=== PATIENT | female | born 1935 | race Caucasian/White ===

== ENCOUNTER → 2017-03-19 | Outpatient (CLI) | payer BC, OTHER ==
[~2017-03-19] MED LIST: IOPAMIDOL (ISOVUE 370) 100 ML BTL IV ONE
== END ==
LOC: FIMAGING 11:57
PROVIDERS: ATTEND Internal Medicine Cardiovascular Disease
DX: I70.203 Unspecified atherosclerosis of native arteries of extremities, bilateral legs (principal); I70.1 Atherosclerosis of renal artery; I25.10 Atherosclerotic heart disease of native coronary artery without angina pectoris
CPT/HCPCS: 75635; Q9967

== ENCOUNTER 2017-09-02 07:25 | Observation (INO) | payer OTHER ==
[2017-09-02] MEDS ORDERED: diphenhydrAMINE 25 MG CAP PO ONE (07:28)
[2017-09-02] MEDS ORDERED: NS 1,000 ML IV ONE (07:28)
[2017-09-02] MEDS ORDERED: ASPIRIN EC 325 MG TAB PO ONE (07:28)
[2017-09-02] MEDS ORDERED: DIAZEPAM 5 MG TAB PO ONE (07:28)
[2017-09-02] MEDS ORDERED: FAMOTIDINE 20 MG TAB PO ONE (07:28)
--- NOTE | 2017-09-02 07:50 | CPEKG ---
Heart Rate: 66 RR Interval: 909 P-R Interval: 196 QRSD Interval: 72 QT Interval: 416 QTC Interval: 436 P [place]: 14 QRS [place]: 8 T Wave [place]: 46 EKG Severity - NORMAL ECG - EKG Impression: SINUS RHYTHM Electronically Signed By: Abdi Krishna 02-Sep-2017 07:56:25
[2017-09-02 08:11] LABS: PLATELET COUNT 335 10^3/uL (150-400)
[2017-09-02 08:24] LABS: PROTIME(PATIENT) 13.4 SEC (12.0-15.0)
[2017-09-02] MEDS ORDERED: LIDOCAINE 1% 300 MG/30 ML SDV ONE (08:25)
[2017-09-02] MEDS ORDERED: fentaNYL 100 MCG/2 ML INJ ONE (08:25)
[2017-09-02] MEDS ORDERED: IOPAMIDOL (ISOVUE-370) 150 ML BTL IV ONE (08:26)
[2017-09-02] MEDS ORDERED: MIDAZOLAM 2 MG/2 ML VIAL ONE (08:26)
--- NOTE | 2017-09-02 08:44 | PDGENHP ---
History & Physical Chief Complaint: Claudication History of Present Illness: 82 yo, f with known CAD and PVD presents with symptoms of increasing claudication and rest pain. CTA notable for ALEX and distal SFA disease. Plan for coronary angiography and peripheral angiography. Pertinent Past, Social, Family History: reviewed Relevant Physical Exam: deminished DP and PT pulses B Cardiorespiratory Assessment: RRR, S1, S2. CTA
--- NOTE | 2017-09-02 08:45 | PDPROPOC ---
Sedation Plan of Care Sedation Plan of Care: vital signs stable, mental status noted, patient educated of risks, benefits, alternatives, patient can tolerate sedation ASA Classification: ASA 2 Planned drugs: fentanyl, midazolam Mallampati Score: Class 2 Mallampati Reference Image: Patient passed 3-3-2 rule?: Yes
[2017-09-02] MEDS ORDERED: ATROPINE SULFATE 1 MG/10 ML SYR ONE (10:45)
[2017-09-02] MEDS ORDERED: ATROPINE SULFATE 1 MG/10 ML SYR IVP PRN (11:20)
[2017-09-02] MEDS ORDERED: NITROGLYCERIN 0.4 MG BTL SL PRN (11:20)
[2017-09-02] MEDS ORDERED: ONDANSETRON 4 MG/2 ML VIAL IVP PRN (11:20)
[2017-09-02] MEDS: METOPROLOL TARTRATE 25 MG TAB PO SCH (20:31)
[2017-09-02] MEDS ORDERED: ISOSORBIDE MONONITRATE 30 MG TAB.SR PO SCH (21:00)
[2017-09-02] MEDS ORDERED: RANOLAZINE 500 MG TAB.ER PO SCH (21:00)
--- NOTE | 2017-09-03 00:33 | CPIP ---
[f rep st] INVASIVE CARDIAC PROCEDURE DATE OF PROCEDURE: 09/02/2017 PROCEDURE: 1. Coronary angiography. 2. Ascending aortography. 3. Abdominal aortography. 4. Right lower extremity angiography via ipsilateral approach with catheter placed in the right comm on iliac artery. 5. Left lower extremity angiography via ipsilateral approach with catheter placed in the left common femoral artery. INDICATION: 1. Known coronary artery disease. 2. Preoperative evaluation for potential femoral-popliteal bypass surgery. 3. Progressive claudication resulting in rest pain. ACCESS: The patient was prepped and draped in sterile fashion. 1% lidocaine was used to anesthetize the right inguinal region. A 6-Malaysian introducer sheath was placed selectively into the right commo n femoral artery via modified Seldinger technique. 1% lidocaine was used to anesthetize the left ing uinal region. A 6-Malaysian introducer sheath was placed selectively into the left common femoral arter y via modified Seldinger technique. CORONARY ANGIOGRAPHY: A 6-Malaysian JL4 was advanced to the left main coronary artery and images obtain ed. The left main coronary artery bifurcated into an LAD and circumflex coronary arteries. The left main coronary artery had an ostial 80% stenosis present. The left anterior descending coronary mita ry is diffusely diseased. In the mid vessel, there was a long segmental 80% to 85% stenosis present. Distal to this stenosis, JIMENEZ to LAD graft could be seen filling the distal left anterior descendin g coronary artery. The left anterior descending coronary artery gave rise to 2 diagonal branches jus t prior to the stenosis. The diagonal branches appeared free of any significant disease. A stent ca n be seen in the proximal portion of the left anterior descending coronary artery. The previously pl aced stent is patent, with no evidence of significant in-stent restenosis. The circumflex coronary a rtery is a large vessel and is at least codominant. The circumflex coronary artery is diffusely dise ased. In the proximal segment, there is a long segmental tortuous 90% stenosis present. The first O M artery is totally occluded in the ostial segment, and it can be seen filling by vnrm-he-gtta collat erals. The remainder of the circumflex coronary artery had mild to moderate disease, with no stenosi s greater than 25%. A 6-Malaysian JR4 was advanced to the right coronary artery and images obtained. T he right coronary artery was diffusely diseased. The right coronary artery is a relatively small ves tommy, approximately 1.5 to perhaps 2 mm in diameter in the proximal segment. In the proximal portion of the blood vessel, there is a discrete 80% to 90% stenosis present. In the mid vessel, previously placed stent can be seen. The previously placed stent has in-stent restenosis approaching 70% in sev erity. BYPASS GRAFT ANGIOGRAPHY: The patient was known to have an occluded bypass graft to the right mclean ry artery and circumflex coronary artery. These grafts were not looked for. The patient was known t o have a patent JIMENEZ to LAD graft. Several attempts were made at trying to pass a 6-Malaysian JR4 into the left subclavian artery. These were unsuccessful. It was decided to perform aortography. During aortography, it could be seen that there is an ostial left subclavian stenosis that is probably 80% in severity. ABDOMINAL AORTOGRAPHY: A 6-Malaysian pigtail catheter was placed in the abdominal aorta, and position v erified by angiography. Images were obtained via power injection through the [employer] system. The dis yoshi portion of the abdominal aorta was relatively small in diameter and heavily calcified. It then b ifurcated into the left and right common iliac arteries. The left and right common iliac arteries ap peared to have ostial 75% stenosis present. RIGHT LOWER EXTREMITY ANGIOGRAPHY: With the ipsilateral approach with catheter placed in the right c ommon iliac artery, a straight flush catheter was placed in the right common iliac artery and positio n verified by angiography. Images were obtained via hand injection. The right common iliac artery b ifurcated into the internal iliac artery and external iliac artery. The ostial segment of the right internal iliac artery appeared to have a 75% stenosis present. The right internal iliac artery had a proximal 40% to 50% stenosis present. The right external iliac artery had mild diffuse disease. Th ere was no stenosis greater than 70%. The right external iliac artery then turned into the right com mon femoral artery. The right common femoral artery had a 40% stenosis at the bifurcation. The prof unda femoral artery was free of any significant disease. The superficial femoral artery was diffusel y diseased. In the ostial segment, there was probably a 30% to 40% stenosis present. In the proxima l portion of the vessel, there was sequential 90% stenosis present. In the mid vessel, there was a d iscrete 80% stenosis present. The popliteal artery also appeared to be about 80% stenosed. Below th e knee, there was single-vessel runoff via anterior tibial artery to posterior tibial artery collater als. LEFT LOWER EXTREMITY ANGIOGRAPHY: Via ipsilateral approach with catheter placed in the left common f emoral artery, the left common femoral artery bifurcated into the superficial femoral artery and prof unda femoral artery. The common femoral artery was diffusely diseased, with stenosis up to 20%. The profunda femoral artery is free of any significant disease. The superficial femoral artery was diff usely diseased. The superficial femoral artery was 100% occluded in the mid to distal segment. It r eapproximated itself just prior to turning into the popliteal artery. The popliteal artery had a 40% to 50% stenosis present. Below the knee, there was scant 2 vessel runoff. COMPLICATIONS: None. CONCLUSIONS: 1. Left main and 3-vessel coronary artery disease. 2. An 80% stenosis of the ostial left subclavian artery, jeopardizing JIMENEZ to LAD flow. 3. A 75% stenosis of the right and left common iliac arteries. 4. Scattered 80% to 90% stenosis of the right superficial femoral artery. 5. Occluded left superficial femoral artery. /[id number]/MODL
[2017-09-03] MEDS: METOPROLOL TARTRATE 25 MG TAB PO SCH (08:00)
[2017-09-03] MEDS ORDERED: DILTIAZEM CD 180 MG CAP PO SCH (09:00)
[2017-09-03] MEDS ORDERED: PANTOPRAZOLE SODIUM 40 MG TAB PO SCH (09:00)
[2017-09-03] MEDS ORDERED: CLOPIDOGREL BISULFATE 75 MG TAB PO SCH (09:00)
[2017-09-03 12:34] VITALS: BP 130/71; PULSE 86; RESP 16; TEMP 98.7; O2SAT 95
--- NOTE | 2017-09-03 13:34 | ASMTLACE ---
SHANNAE Length of stay for Answers: 1 day current admission Acuity / Level of Answers: No Care: Did the patient have an inpatient admission? Comorbidities - select Answers: Coronary Artery Disease all that apply Peripheral vascular disease # of Emergency department Answers: 0 visits in the last 6 months Score: 4 Date Signed: 09/03/2017 01:34 PM Electronically Signed By:Susanna Cisse RN
--- NOTE | 2017-09-03 14:01 | GDS ---
[f rep st] DISCHARGE SUMMARY DISCHARGE DIAGNOSIS: 1. Coronary artery disease. The patient has known coronary artery disease and is status post previo us coronary artery bypass grafting surgery and percutaneous coronary intervention. The patient under went coronary angiography in anticipation of surgical management of her peripheral vascular disease. Coronary angiography demonstrated significant left main and 3 vessel coronary artery disease. The pa tient's bypass graft to the right coronary artery and circumflex coronary artery were known to be occ luded previously. The patient's JIMENEZ to LAD graft was patent. However, the JIMENEZ to LAD graft is pot entially jeopardized by an 80% stenosis of the ostial left subclavian artery. The patient denies sym ptoms of angina. She is not interested in repeat bypass grafting surgery. We will plan on managing patient medically. 2. Peripheral vascular disease. Patient has known peripheral vascular disease with classic calf cla udication. Recently, patient began to experience bilateral quadriceps rest pain and presented for fur ther evaluation. Peripheral angiography was notable for a 75% stenosis of the right and left common iliac arteries. In addition, patient was noted to have a total occlusion of her distal left superfic ial femoral artery as well as multiple segmental 90% stenoses in her right superficial femoral arteri es. Management options were discussed with patient and family including medical management, percutane ous intervention and surgical revascularization. Patient would like to pursue percutaneous interventi on of her right and left common iliac arteries via kissing stent technique. Will arrange to have thi s performed in the following week. 3. Hyperkalemia. The patient's potassium was elevated at 5.5 on admission. This was felt to be like ly secondary to her spironolactone use. Patient was admitted to the hospital and treated with IV hydr ation and spironolactone held. Her creatinine returned within normal limits at 5.1. Will plan on dis continuing spironolactone. SUMMARY OF PRESENTATION AND COURSE: Mrs. Zapata is an 82-year-old female with known peripheral vas cular disease and coronary artery disease who was admitted for coronary and peripheral angiography on 09/02/2017. Coronary angiography was notable for significant left main and 3 vessel coronary artery disease. Her bypass grafts to the right coronary artery and circumflex coronary artery were known to be occluded previously. Her JIMENEZ to LAD graft was patent. However, she did have an 80% stenosis of her left subclavian artery potentially jeopardizing this graft. Patient denied symptoms of angina an d opted for medical management. The patient's peripheral vascular disease is quite extensive involvi ng her left subclavian artery bilateral common iliac arteries, bilateral superficial femoral arteries with limited runoff below the knee. Treatment options were discussed with patient and family includ ing medical management, percutaneous revascularization and surgical revascularization. Patient wishes to have percutaneous revascularization. Will arrange to have this performed the following week. The patient was admitted to the hospital for observation given hyperkalemia, mild renal insufficiency an d contrast load. The patient's postprocedural course was uncomplicated and at the time of discharge, she was doing well. DISCHARGE MEDICATIONS: Please see medicine reconciliation form. PHYSICAL EXAMINATION: GENERAL: At the time of discharge, patient is resting comfortably in a chair. She did not appear to be in acute distress. VITALS: Temperature was afebrile. Pulse was 86. Blood pressure 130/71. Respiratory rate was 16, SaO2 was 95% on room air. LUNGS: Clear to auscultation b ilaterally. CARDIOVASCULAR: Regular rate and rhythm. S1, S2. EXTREMITIES: No hematoma or ecchymo sis at the right and left inguinal access sites. No evidence of edema. LABORATORY: Sodium 141, potassium 5.1, chloride 107, CO2 20, BUN 28, creatinine 1.1. White blood ce ll count 7.6, hemoglobin 12.6, hematocrit 39.4, platelet count 335. ARRANGEMENTS FOR FOLLOWUP CARE: Patient will follow up with Dr. Narvaez in approximately 1 week's per iod of time for peripheral angiography and intervention of her common iliac arteries. She will also plan on following up with Dr. Amador following this intervention for ongoing management of her coronar y artery disease. /[id number]/MODL
--- NOTE | 2017-09-03 14:28 | ASDISCHSUM ---
Discharge Information Plan Status:Home with No Needs Medically Cleared to Leave:09/03/2017 Discharge Date:09/03/2017 02:05 PM CM D/C Disposition:Home, Routine, Self-Care ADT D/C Disposition:Home, Routine, Self-Care Projected Discharge Date:09/03/2017 02:05 PM Transportation at D/C:Family Discharge Delay Reason: Follow-Up Date:09/03/2017 02:05 PM Discharge Slot: Final Diagnosis: Placement Information Patient Contact Information Contact Name:CHARLES Relationship: Address:[address] [place] [address] [phone] Work Phone: [facility]:[place] Alternate Phone: [facility]/Zip Code:[place] [address] Email: Financial Information Financial Class:Medicare Advantage Plans Primary Plan Desc:LISA URRUTIA MEDICARE ADV Primary Plan Number:[id number] Secondary Plan Desc: Secondary Plan Number: Assessment Information LACE LACE Length of stay for Answers: 1 day current admission Acuity / Level of Answers: No Care: Did the patient have an inpatient admission? Comorbidities - select Answers: Coronary Artery Disease all that apply Peripheral vascular disease # of Emergency department Answers: 0 visits in the last 6 months Score: 4 Date Signed: 09/03/2017 01:34 PM Electronically Signed By:Susanna Cisse RN Case Management Discharge Plan Note Case Management Discharge Discharge Order Complete? Answers: Yes Patient to Obtain Answers: Independently Medications Transportation Arranged Answers: Family/Friends Discharge Comments Notes: 09/03/2017 Case Management Note Met w/pt and daughter Naida [phone]. Daughter Ragini resides in [facility] at [phone]. Family to transport home. There are no case management d/c needs identified. Pt to d/c independent with family support and follow up as directed. Date Signed: 09/03/2017 01:35 PM Electronically Signed By:Susanna Cisse RN Intervention Information Intervention Type:*SHEPPARD-Signed Date of Service:09/03/2017 09:50 AM Patient Type:Observation Staff Member:Susan Doss Hours: Discipline: Severity: Comment:
[2017-09-04] MEDS ORDERED: ALLOPURINOL 100 MG TAB PO SCH (08:00)
== END 2017-09-03 14:05 | disposition home or self-care (01) ==
LOC: FCATH 07:25 → F2W 11:12
PROVIDERS: ADMIT Internal Medicine Cardiovascular Disease; ATTEND Internal Medicine Cardiovascular Disease
PROC: 04HC33Z Insertion of Infusion Device into Right Common Iliac Artery, Percutaneous Approach (ICD-10-PCS; principal; 2017-09-02)
PROC: 04HL33Z Insertion of Infusion Device into Left Femoral Artery, Percutaneous Approach (ICD-10-PCS; principal; 2017-09-02)
DX: I25.10 Atherosclerotic heart disease of native coronary artery without angina pectoris (principal); I77.1 Stricture of artery; I73.9 Peripheral vascular disease, unspecified; E87.5 Hyperkalemia
CPT/HCPCS: 75625; 75716; 93005; 93455; C1769; G0378; J1644; J2250; J3010; J0461; Q9967

== ENCOUNTER 2017-09-16 08:39 | Observation (INO) | payer OTHER ==
[2017-09-16] MEDS ORDERED: DIAZEPAM 5 MG TAB PO ONE (08:43)
[2017-09-16] MEDS ORDERED: FAMOTIDINE 20 MG TAB PO ONE (08:43)
[2017-09-16] MEDS ORDERED: ASPIRIN EC 325 MG TAB PO ONE ×2 (08:43→09:08)
[2017-09-16] MEDS ORDERED: NS 1,000 ML IV ONE (08:43)
[2017-09-16] MEDS ORDERED: diphenhydrAMINE 25 MG CAP PO ONE ×2 (08:43→09:08)
--- NOTE | 2017-09-16 08:59 | CPEKG ---
Heart Rate: 65 RR Interval: 923 P-R Interval: 192 QRSD Interval: 78 QT Interval: 424 QTC Interval: 441 P [place]: -7 QRS [place]: 2 T Wave [place]: 56 EKG Severity - BORDERLINE ECG - EKG Impression: SINUS RHYTHM EKG Impression: INFERIOR Q WAVES NOTED Electronically Signed By: Amor Ott 18-Sep-2017 09:57:40
[2017-09-16] MEDS ORDERED: DIAZEPAM 5 MG TAB ONE (09:09)
[2017-09-16 09:22] LABS: PLATELET COUNT 333 10^3/uL (150-400)
[2017-09-16 09:32] LABS: INR 0.96 (0.83-1.16)
--- NOTE | 2017-09-16 09:50 | PDHPUP ---
History & Physical Update H&P update statement: This history and physical update is based on an assessment of the patient which was completed after admission or registration (within 24 hours), but prior to the surgery/procedure. H&P update: H&P reviewed & patient examined, no change in patient's condition since H&P completed
[2017-09-16] MEDS ORDERED: IOPAMIDOL (ISOVUE-300) 150 ML BTL ONE (09:58)
[2017-09-16] MEDS ORDERED: fentaNYL 100 MCG/2 ML INJ ONE (09:58)
[2017-09-16] MEDS ORDERED: MIDAZOLAM 2 MG/2 ML VIAL ONE (09:58)
[2017-09-16] MEDS ORDERED: LIDOCAINE 1% 300 MG/30 ML SDV ONE (09:59)
[2017-09-16] MEDS ORDERED: HEPARIN 10,000 UNIT/10 ML MDV (1,000 UNIT/ML) ONE (10:28)
[2017-09-16] MEDS ORDERED: LORazepam 2 MG/ML INJ IVP PRN (11:48)
[2017-09-16] MEDS ORDERED: TEMAZEPAM 15 MG CAP PO PRN (11:48)
[2017-09-16] MEDS ORDERED: ATROPINE SULFATE 1 MG/10 ML SYR IVP PRN (11:48)
[2017-09-16] MEDS ORDERED: NITROGLYCERIN 0.4 MG BTL SL PRN (11:48)
[2017-09-16] MEDS ORDERED: ONDANSETRON 4 MG/2 ML VIAL IVP PRN (11:48)
--- NOTE | 2017-09-16 12:48 | CPIP ---
[f rep st] INVASIVE CARDIAC PROCEDURE DATE OF PROCEDURE: 09/16/2017 PROCEDURES PERFORMED: 1. Abdominal aortography. 2. Left lower extremity angiography via ipsilateral approach. 3. Stenting of right common iliac artery with an 8.0 x 37 Express stent. 4. Stenting of left common iliac artery with an 8.0 x 37 Express stent. INDICATION: Claudication. ACCESS: The patient was prepped and draped in sterile fashion. 1% lidocaine was used to anesthetize the right inguinal region. A 6-Honduran introducer sheath was placed selectively in the right common femoral artery via modified Seldinger technique. 1% lidocaine was used to anesthetize the left ingui nal region. A 6-Honduran introducer sheath was placed selectively into the left common femoral artery via modified Seldinger technique. DESCRIPTION OF PROCEDURE: Abdominal aortography: A 6-Honduran pigtail catheter was advanced into the abdominal aorta and position verified by angiography. Images were obtained via power injection throu gh the [employer] system. Abdominal aortography demonstrated an 80% stenosis at the ostium of the right common iliac artery and a 75% stenosis at the ostium of the left common iliac artery. Left lower extremity angiography via ipsilateral approach with catheter placed in the left common trino ac artery: A straight flush catheter was placed in the left common iliac artery and position verifie d by angiography. Images will be obtained via hand injection through the catheter. There was a 75% ostial left common iliac artery stenosis as well as a mid to distal 50% stenosis in the left common i liac artery. Stenting of right and left common iliac arteries: A Magic Torque wire was placed in the distal abdom inal aorta via the right common femoral access site. A Magic Torque wire was placed in the distal ab dominal aorta via the left common femoral access site. An 8.0 x 37 Express stent was placed in the r ight common iliac artery. An 8.0 x 37 Express stent was placed in the left common iliac artery. Bot h stents were inflated simultaneously. Followup angiography demonstrated a 25% residual stenosis in the ostium of the right common iliac artery. The right common iliac artery was postdilated with an 8 .0 x 20 drop wire stringer balloon. Followup angiography demonstrated residual 10% stenosis. COMPLICATIONS: None. CONCLUSIONS: 1. 80% stenosis of the right common iliac artery. 2. 75% stenosis of the left common iliac artery in the ostial segment, followed by 50% stenosis of t he left common iliac artery in the mid to distal segment. 3. Status post successful stenting of the right and left common iliac arteries via kissing stent prosper lucie. /[id number]/MODL
[2017-09-16] MEDS ORDERED: LABETALOL HCL 5 MG/ML 20 ML MDV IVP ONE (13:00)
[2017-09-16] MEDS: ACETAMINOPHEN 500 MG TAB PO SCH (17:40)
[2017-09-16] MEDS: METOPROLOL SUCCINATE XR 100 MG TAB PO SCH (20:53)
[2017-09-16] MEDS ORDERED: RANOLAZINE 500 MG TAB.ER PO SCH (21:00)
[2017-09-16] MEDS ORDERED: ACETAMINOPHEN 500 MG TAB PO SCH (21:00)
[2017-09-16] MEDS ORDERED: ISOSORBIDE MONONITRATE 30 MG TAB.SR PO SCH (21:00)
[2017-09-17 04:30] LABS: PLATELET COUNT 297 10^3/uL (150-400)
[2017-09-17] MEDS: ACETAMINOPHEN 500 MG TAB PO SCH (08:09)
[2017-09-17] MEDS: METOPROLOL SUCCINATE XR 100 MG TAB PO SCH (08:10)
[2017-09-17] MEDS ORDERED: DILTIAZEM CD 180 MG CAP PO SCH (09:00)
[2017-09-17] MEDS ORDERED: ASPIRIN EC 325 MG TAB PO SCH (09:00)
[2017-09-17] MEDS ORDERED: PANTOPRAZOLE SODIUM 40 MG TAB PO SCH (09:00)
[2017-09-17] MEDS ORDERED: CLOPIDOGREL BISULFATE 75 MG TAB PO SCH (09:00)
[2017-09-17 11:12] VITALS: BP 123/65; PULSE 66; RESP 11; TEMP 98.1; O2SAT 93
--- NOTE | 2017-09-17 13:43 | ASDISCHSUM ---
Discharge Information Plan Status:Home with No Needs Medically Cleared to Leave:09/17/2017 Discharge Date:09/17/2017 12:35 PM CM D/C Disposition:Home, Routine, Self-Care ADT D/C Disposition:Home, Routine, Self-Care Projected Discharge Date:09/17/2017 12:35 PM Transportation at D/C:Family Discharge Delay Reason: Follow-Up Date:09/17/2017 12:35 PM Discharge Slot: Final Diagnosis: Placement Information Patient Contact Information Contact Name:CHARLES Relationship: Address:[address] [place] [address] [address] Work Phone: [facility]:[place] Alternate Phone: [facility]/Zip Code:[place] [address] Email: Financial Information Financial Class:Medicare Advantage Plans Primary Plan Desc:LISA URRUTIA MEDICARE ADV Primary Plan Number:[id number] Secondary Plan Desc: Secondary Plan Number: Assessment Information Intervention Information
--- NOTE | 2017-09-17 13:43 | ASMTLACE ---
LACE Length of stay for Answers: Less than 1 day current admission Acuity / Level of Answers: No Care: Did the patient have an inpatient admission? Comorbidities - select Answers: Coronary Artery Disease all that apply Peripheral vascular disease # of Emergency department Answers: 0 visits in the last 6 months Score: 3 Date Signed: 09/17/2017 01:43 PM Electronically Signed By:Susanna Cisse RN
--- NOTE | 2017-09-17 14:08 | GDS ---
[f rep st] DISCHARGE SUMMARY ADMITTING DIAGNOSIS: 1. Coronary artery disease. 2. Peripheral vascular disease. 3. Planned left heart catheterization with possible stenting. DISCHARGE DIAGNOSIS: 1. Status post coronary artery disease. 2. Peripheral vascular disease. 3. Stents placed to common iliac, right and left vessels. COURSE OF HOSPITALIZATION: This nice lady was seen in clinic by Dr. Serg Narvaez on August 26, 2017. H alfred reviewed her medication regimen and due to her known coronary artery disease and peripheral vascula r disease, recommended left heart cath to further evaluate both coronary and peripheral vessels. She was taken to the cardiac cath lab radiological technologist by Dr. Narvaez on 09/16/2017 where he found significant stenosis of the right and left iliac vessels. There were no complications and she was taken to PCU for overni t observation. She did have a left groin bleed requiring continuous pressure to the site with a Fems top. This did stop the bleeding and she did well through the night. Her telemetry shows a sinus rhy thm with no other abnormalities. She has been up in the room and the mohr today ambulating with no p roblem. The site has mild ecchymosis and tenderness. Right groin site has minimal ecchymosis and is nontender. She is anxious for discharge. At this time, she is stable. MEDICATIONS: She will go home on: 1. Tylenol ES 500 mg twice daily. 2. Ranexa 500 mg at bedtime. 3. Protonix 40 mg daily. 4. Allopurinol 100 mg Saturday, Saturday, Saturday. 5. Metoprolol succinate extended release 100 mg twice daily. 6. Isosorbide mononitrate 60 mg at bedtime. 7. Diltiazem extended release 180 mg daily. 8. Plavix 75 mg daily. 9. Nitrostat 0.4 mg sublingual p.r.n. chest pain per instructions. 10. Aspirin 325 mg daily. Of note, Celebrex will be stopped. PHYSICAL EXAMINATION: VITAL SIGNS: On day of discharge, blood pressure 123/65, heart rate 66 and re gular, oxygen saturation 92% on room air, temperature 36.7 Celsius. EKG shows normal sinus rhythm wi th no arrhythmias. CARDIAC: Heart rate regular, no murmurs, rubs, gallops. LUNGS: Lung sounds are clear to auscultation. No wheezes, rales, or rhonchi. PULSES: Peripheral pulses are 2+ bilaterall y. Femoral pulse is intact bilaterally. ABDOMEN: Right groin site is intact with no bleeding, moraima ration or tenderness. She does have mild ecchymoses. Left groin site has mild ecchymosis, nontender with no bleeding. She does have some mild induration. INTERVENTIONAL PROCEDURE: 09/16/[address] Serg Narvaez, procedures performed. 1. Abdominal aortography. 2. Left lower extremity angiography via ipsilateral approach. 3. Stenting of the right common iliac artery with an Express stent. 4. Stenting of left common iliac artery with an Express stent. CONCLUSIONS: 1. 80% stenosis of the right common iliac artery. 2. 75% stenosis of left common iliac artery in the ostial segment followed by 50% stenosis of the le ft common iliac artery in the mid to distal segment. 3. Status post successful stenting of the right and left common iliac arteries, a kissing stent tech niconor. There were no complications at time of procedures. DISCHARGE PLAN: 1. Groin precautions were given verbally and written instructions. 2. For 1-week, no heavy lifting, pushing, pulling greater than 10-pounds. 3. No sitting in a tub of water. 4. She can gradually increase activity over the course of the week. 5. Avoid bearing down activity and splint sites for episodes of coughing or sneezing. 6. She will follow up with Dr. Narvaez at [facility] on September 27, 2017 at 1:30 p.m. 7. At this time, she currently is stable for discharge. /[id number]/MODL
[2017-09-18] MEDS ORDERED: ALLOPURINOL 100 MG TAB PO SCH (08:00)
== END 2017-09-17 12:35 | disposition home or self-care (01) ==
LOC: FCATH 08:39 → F2W 11:48
PROVIDERS: ADMIT Internal Medicine Cardiovascular Disease; ATTEND Internal Medicine Cardiovascular Disease
PROC: 047D3DZ Dilation of Left Common Iliac Artery with Intraluminal Device, Percutaneous Approach (ICD-10-PCS; principal; 2017-09-16)
PROC: 047C3DZ Dilation of Right Common Iliac Artery with Intraluminal Device, Percutaneous Approach (ICD-10-PCS; principal; 2017-09-16)
DX: I77.1 Stricture of artery (principal); I25.10 Atherosclerotic heart disease of native coronary artery without angina pectoris; I73.9 Peripheral vascular disease, unspecified
CPT/HCPCS: 37221; 75716; 93005; C1725; C1769; C1876; G0378; J1644; J2250; J3010; Q9967; 86850-90; 86870-90; 99001-90

== ENCOUNTER → 2017-09-27 | Outpatient (CLI) | payer OTHER | LOC: FIMAGING 14:34 | PROVIDERS: ATTEND Internal Medicine Cardiovascular Disease | DX: I72.4 Aneurysm of artery of lower extremity (principal) ==